=== PATIENT | male | born 1970 | race Two or more races ===

== ENCOUNTER 2021-08-21 11:56 | Inpatient (IN) | payer OTHER ==
[~2021-08-21] VITALS: Ht 167.6 cm; Wt 119.3 kg
[2021-08-21] VITALS (9 sets, daily range): BP systolic 119–150; BP diastolic 77–97
[2021-08-21] MEDS ORDERED: MORPHINE SULFATE 4 MG/ML SYR/VIAL IV ONE (12:45)
[2021-08-21] MEDS ORDERED: NITROGLYCERIN 0.4 MG SL TAB SL PRN (12:45)
[2021-08-21] MEDS ORDERED: MORPHINE SULFATE INJECTION 2 MG/ML SYRG IV PRN (12:45)
[2021-08-21 13:31] LABS: Eosinophils # (auto) 0 10 ^3/uL (0-0.8); Monocytes # (auto) 0.4 10 ^3/uL (0-1.3); Red Cell Distribution Width 14.4 % (11.8-14.3)
[2021-08-21 13:33] LABS: Basophils # (auto) 0.1 10 ^3/uL (0-0.2); Basophils % (auto) 0.5 % (0.0-2.0); Eosinophils % (auto) 0.1 % (0.0-7.0); Hematocrit 39.6 % (41.0-53.0); Hemoglobin 13.3 g/dL (13.5-17.5); Lymphocytes # (auto) 1.3 10 ^3/uL (0.4-5.4); Lymphocytes % (auto) 9.4 % (10.0-50.0); Mean Corpuscular Hemoglobin 26.9 pg (28.0-32.0); Mean Corpuscular Hgb Conc. 33.6 g/dL (32.0-36.0); Mean Corpuscular Volume 80.1 fL (80.0-100.0); Monocytes % (auto) 2.8 % (0.0-12.0); Neutrophils # (auto) 11.7 10 ^3/uL (1.6-8.6); Neutrophils % (auto) 87.2 % (37.0-80.0); Nucleated Red Blood Cells % 0.2 %; Red Blood Cells 4.95 10^6/uL (4.5-5.90); White Blood Cell 13.4 10^3/uL (4.4-10.8)
[2021-08-21] MEDS: NITROGLYCERIN 0.4 MG SL TAB SL PRN ×4 (13:49→20:13)
[2021-08-21 13:51] LABS: Albumin 3.9 g/dL (3.4-5.0); Calcium 9.7 mg/dL (8.5-10.1); Potassium 4.2 mmol/L (3.5-5.1)
[2021-08-21 13:57] LABS: BUN/Creatinine Ratio 14.3; Bilirubin, Total 0.4 mg/dL (0.2-1.0)
[2021-08-21] MEDS ORDERED: HYDROmorphone HCL 2 MG/ML VL ONE ×2 (14:06→15:19)
[2021-08-21] MEDS ORDERED: HYDROmorphone HCL 2 MG/ML VL IV ONE (14:15)
[2021-08-21] MEDS ORDERED: IODIXANOL 320MG/ML 100ML BTL IV ONE ×3 (14:19→16:27)
[2021-08-21] MEDS ORDERED: IOHEXOL 350 MG/ML 100ML IJ ONE (14:19)
[2021-08-21] MEDS ORDERED: ANGIOMAX 250 MG VIAL IV ONE ×2 (14:32→15:07)
[2021-08-21] MEDS ORDERED: fentaNYL CITRATE 100 MCG/2 ML VL ONE ×2 (14:32→14:46)
[2021-08-21] MEDS ORDERED: SODIUM CHL 0.9% 50 ML ONE ×2 (14:33→15:08)
[2021-08-21] MEDS ORDERED: MIDAZOLAM HCL 2MG/2ML 2ml VIAL (1mg/ml) ONE ×2 (14:33→14:47)
[2021-08-21] MEDS ORDERED: VERAPAMIL 2.5MG/ML INJ 2ML VIAL IV ONE (14:37)
[2021-08-21] MEDS ORDERED: HEPARIN SODIUM (PORCINE) 5000 UNITS/ML 1ML VIAL ONE (14:37)
[2021-08-21] MEDS ORDERED: EPTIFIBATIDE DRIP(0.75MG/ML) 100 ML IV ONE (15:35)
[2021-08-21] MEDS ORDERED: EPTIFIBATIDE INJ (2MG/ML) 10ML VIAL IV ONE ×2 (15:38→15:47)
[2021-08-21] MEDS ORDERED: KETOROLAC TROMETH 30 MG/ML 1ML VIAL IV ONE ×2 (15:45→20:45)
[2021-08-21 16:37] LABS: Cholesterol 123 mg/dL (< 200); Triglycerides 156 mg/dL (< 150)
[2021-08-21 16:39] LABS: HDL Cholesterol 34 mg/dL (40-59); LDL Cholesterol 75 mg/dL (< 100)
[2021-08-21] MEDS: ONDANSETRON HCL 4 MG/2 ML VIAL IV PRN (18:15)
[2021-08-21] MEDS ORDERED: TICAGRELOR 90 MG TAB PO ONE (18:15)
[2021-08-21] MEDS: MORPHINE SULFATE INJECTION 2 MG/ML SYRG IV PRN ×2 (18:17→19:47)
[2021-08-21] MEDS: NITROGLYCERIN 50MG/250ML 250 ML IV SCH (20:45)
[2021-08-21] MEDS ORDERED: ERGOCALCIFEROL 50,000 UNIT(1.25MG) CAP PO SCH (21:15)
[2021-08-21] MEDS ORDERED: DEXTROSE (50%) 50ML SYRG IV PRN (21:15)
[2021-08-21] MEDS: InsuLIN REG 1unit/0.01ml Soln (100units/ml) SC SCH (22:00)
[2021-08-21] MEDS: ATORVASTATIN 20 MG TAB PO SCH (22:00)
[2021-08-21] MEDS: CARVEDILOL 3.125 MG TAB PO SCH (22:00)
[2021-08-21] MEDS ORDERED: ATORVASTATIN 20 MG TAB PO SCH (22:00)
[2021-08-21] MEDS: ACCU-CHEK COMFORT CURVE STRIP VI SCH (22:00)
[2021-08-22] VITALS (22 sets, daily range): BP systolic 100–138; BP diastolic 62–96
[2021-08-22] MEDS: MORPHINE SULFATE INJECTION 2 MG/ML SYRG IV PRN ×4 (01:16→09:48)
[2021-08-22] MEDS: EPTIFIBATIDE DRIP(0.75MG/ML) 100 ML IV SCH ×2 (04:45→12:02)
[2021-08-22] MEDS: InsuLIN REG 1unit/0.01ml Soln (100units/ml) SC SCH ×4 (06:04→21:55)
[2021-08-22] MEDS: ACCU-CHEK COMFORT CURVE STRIP VI SCH ×4 (06:05→21:55)
[2021-08-22 06:07] LABS: Basophils # (auto) 0.1 10 ^3/uL (0-0.2); Basophils % (auto) 0.4 % (0.0-2.0); Eosinophils # (auto) 0 10 ^3/uL (0-0.8); Eosinophils % (auto) 0.2 % (0.0-7.0); Hematocrit 35.7 % (41.0-53.0); Lymphocytes # (auto) 1.4 10 ^3/uL (0.4-5.4); Lymphocytes % (auto) 10.3 % (10.0-50.0); Mean Corpuscular Hemoglobin 27.1 pg (28.0-32.0); Mean Corpuscular Hgb Conc. 33.7 g/dL (32.0-36.0); Mean Corpuscular Volume 80.5 fL (80.0-100.0); Monocytes # (auto) 0.9 10 ^3/uL (0-1.3); Neutrophils # (auto) 10.9 10 ^3/uL (1.6-8.6); Neutrophils % (auto) 82.1 % (37.0-80.0); Red Blood Cells 4.43 10^6/uL (4.5-5.90); Red Cell Distribution Width 14.4 % (11.8-14.3); White Blood Cell 13.3 10^3/uL (4.4-10.8)
[2021-08-22 06:25] LABS: BUN/Creatinine Ratio 19.5; Magnesium 2.4 mg/dL (1.6-2.6); Potassium 4.3 mmol/L (3.5-5.1)
[2021-08-22] MEDS ORDERED: ACETAMINOPHEN 325 MG TAB PO PRN (08:00)
[2021-08-22] MEDS: ASPirin 81 mg TAB PO SCH (09:46)
[2021-08-22] MEDS: TICAGRELOR 90 MG TAB PO SCH ×2 (09:46→21:54)
[2021-08-22] MEDS: ONDANSETRON HCL 4 MG/2 ML VIAL IV PRN (09:46)
[2021-08-22] MEDS: CARVEDILOL 3.125 MG TAB PO SCH ×2 (09:46→21:55)
[2021-08-22] MEDS ORDERED: CLOPIDOGREL BISULFATE 75 MG TAB PO SCH (10:00)
[2021-08-22] MEDS: LISINOPRIL 10 MG TAB PO SCH (10:00)
[2021-08-22] MEDS: traMADol HCL 50 MG TAB PO PRN ×2 (11:35→16:10)
[2021-08-22] MEDS: HYDROmorphone HCL 2 MG/ML VL IV PRN ×4 (13:18→23:18)
[2021-08-22] MEDS: SODIUM CHLORIDE 0.9% 1,000 ML IV SCH (15:09)
[2021-08-22 18:42] LABS: Urine Bacteria NONE SEEN /hpf (None Seen); Urine Blood Negative /uL (Negative); Urine Mucus FEW (None Seen); Urine Specific Gravity 1.041 (1.001-1.035); Urine WBC 3 /hpf (0 - 3)
[2021-08-22] MEDS: NITROGLYCERIN 50MG/250ML 250 ML IV SCH (20:45)
[2021-08-22 21:09] LABS: Alcohol, Urine < 3.0 mg/dL (0-10); Amphetamine Screen, Urine NEGATIVE (NEGATIVE); Barbiturate Scree,Urine NEGATIVE (NEGATIVE); Benzodiazephine Screen, Urine POSITIVE (NEGATIVE); Cannabinoid Screen, Urine NEGATIVE (NEGATIVE); Cocaine Screen, Urine NEGATIVE (NEGATIVE); Opiate Scree,Urine POSITIVE (NEGATIVE); Phencyclidine Screen, Urine NEGATIVE (NEGATIVE)
[2021-08-22] MEDS: ATORVASTATIN 20 MG TAB PO SCH (21:55)
[2021-08-23] VITALS (8 sets, daily range): BP systolic 101–129; BP diastolic 69–86
[2021-08-23] MEDS: HYDROmorphone HCL 2 MG/ML VL IV PRN ×5 (02:41→21:30)
[2021-08-23 05:05] LABS: Basophils # (auto) 0.1 10 ^3/uL (0-0.2); Eosinophils # (auto) 0 10 ^3/uL (0-0.8); Eosinophils % (auto) 0.2 % (0.0-7.0); Hemoglobin 11.5 g/dL (13.5-17.5); Lymphocytes # (auto) 2.3 10 ^3/uL (0.4-5.4); Monocytes # (auto) 1.2 10 ^3/uL (0-1.3)
[2021-08-23 05:06] LABS: Basophils % (auto) 0.6 % (0.0-2.0); Hematocrit 34.1 % (41.0-53.0); Mean Corpuscular Hemoglobin 27.2 pg (28.0-32.0); Mean Corpuscular Hgb Conc. 33.7 g/dL (32.0-36.0); Mean Corpuscular Volume 80.9 fL (80.0-100.0); Monocytes % (auto) 8.7 % (0.0-12.0); Neutrophils % (auto) 73.5 % (37.0-80.0); Nucleated Red Blood Cells % 0.1 %; Red Blood Cells 4.21 10^6/uL (4.5-5.90); Red Cell Distribution Width 14.6 % (11.8-14.3); White Blood Cell 13.7 10^3/uL (4.4-10.8)
[2021-08-23 05:19] LABS: Albumin 3.2 g/dL (3.4-5.0); BUN/Creatinine Ratio 15.9; Calcium 8.7 mg/dL (8.5-10.1); Potassium 4.3 mmol/L (3.5-5.1)
[2021-08-23 05:22] LABS: Bilirubin, Total 0.6 mg/dL (0.2-1.0); Total Protein 6.9 g/dL (6.4-8.2)
[2021-08-23] MEDS: InsuLIN REG 1unit/0.01ml Soln (100units/ml) SC SCH ×4 (06:08→21:29)
[2021-08-23] MEDS: ACCU-CHEK COMFORT CURVE STRIP VI SCH ×4 (06:17→21:29)
[2021-08-23] MEDS: traMADol HCL 50 MG TAB PO PRN ×2 (08:03→14:34)
[2021-08-23] MEDS: ASPirin 81 mg TAB PO SCH (09:46)
[2021-08-23] MEDS: TICAGRELOR 90 MG TAB PO SCH ×2 (09:46→21:48)
[2021-08-23] MEDS: CARVEDILOL 3.125 MG TAB PO SCH ×2 (09:47→21:28)
[2021-08-23] MEDS: LISINOPRIL 10 MG TAB PO SCH (09:47)
[2021-08-23] MEDS: SODIUM CHLORIDE 0.9% 1,000 ML IV SCH (12:45)
[2021-08-23] MEDS: ATORVASTATIN 20 MG TAB PO SCH (21:29)
[2021-08-24] MEDS: HYDROmorphone HCL 2 MG/ML VL IV PRN ×5 (01:29→19:45)
[2021-08-24 05:00] VITALS: BP 106/73
[2021-08-24] MEDS: InsuLIN REG 1unit/0.01ml Soln (100units/ml) SC SCH ×4 (06:28→22:10)
[2021-08-24] MEDS: ACCU-CHEK COMFORT CURVE STRIP VI SCH ×4 (06:28→22:10)
[2021-08-24] MEDS: SODIUM CHLORIDE 0.9% 1,000 ML IV SCH (08:45)
[2021-08-24 09:00] VITALS: BP 111/74
[2021-08-24] MEDS: ASPirin 81 mg TAB PO SCH (10:52)
[2021-08-24] MEDS: TICAGRELOR 90 MG TAB PO SCH ×2 (10:52→22:03)
[2021-08-24] MEDS: CARVEDILOL 3.125 MG TAB PO SCH ×2 (10:53→22:00)
[2021-08-24] MEDS: LISINOPRIL 10 MG TAB PO SCH (10:54)
[2021-08-24 13:00] VITALS: BP 117/64
[2021-08-24 17:00] VITALS: BP 106/75
[2021-08-24 22:00] VITALS: BP 120/74
[2021-08-24] MEDS: ATORVASTATIN 20 MG TAB PO SCH (22:02)
[2021-08-25] MEDS: HYDROmorphone HCL 2 MG/ML VL IV PRN ×2 (00:17→07:50)
[2021-08-25] MEDS: SODIUM CHLORIDE 0.9% 1,000 ML IV SCH (04:21)
[2021-08-25 05:00] VITALS: BP 111/70
[2021-08-25] MEDS: InsuLIN REG 1unit/0.01ml Soln (100units/ml) SC SCH ×2 (06:21→11:30)
[2021-08-25] MEDS: ACCU-CHEK COMFORT CURVE STRIP VI SCH ×2 (06:21→11:56)
[2021-08-25 09:00] VITALS: BP 125/71
[2021-08-25] MEDS ORDERED: TICA90TA PO (10:01)
[2021-08-25] MEDS ORDERED: LISI20TA28 PO (10:01)
[2021-08-25] MEDS ORDERED: CAR3125T PO (10:01)
[2021-08-25] MEDS: ASPirin 81 mg TAB PO SCH (10:17)
[2021-08-25] MEDS: LISINOPRIL 10 MG TAB PO SCH (10:17)
[2021-08-25] MEDS: TICAGRELOR 90 MG TAB PO SCH (10:17)
[2021-08-25] MEDS: CARVEDILOL 3.125 MG TAB PO SCH (10:18)
[2021-08-25 13:00] VITALS: BP 118/74
== END 2021-08-25 15:30 | disposition home or self-care (01) | DRG 246 ==
LOC: TELE-CENTR 12:12 → ICU CENTRL 17:39 → TELE-CENTR 08-23 15:00
PROVIDERS: ADMIT Internal Medicine; ATTEND Family Medicine
PROC: 027136Z Dilation of Coronary Artery, Two Arteries with Three Drug-eluting Intraluminal Devices, Percutaneous Approach (ICD-10-PCS; principal; 2021-08-21)
PROC: 4A023N7 Measurement of Cardiac Sampling and Pressure, Left Heart, Percutaneous Approach (ICD-10-PCS; 2021-08-21)
PROC: B211YZZ Fluoroscopy of Multiple Coronary Arteries using Other Contrast (ICD-10-PCS; 2021-08-21)
PROC: B215YZZ Fluoroscopy of Left Heart using Other Contrast (ICD-10-PCS; 2021-08-21)
PROC: B241ZZ3 Ultrasonography of Multiple Coronary Arteries, Intravascular (ICD-10-PCS; 2021-08-21)
PROC: 3E073PZ Introduction of Platelet Inhibitor into Coronary Artery, Percutaneous Approach (ICD-10-PCS; 2021-08-21)
DX: T82.867A Thrombosis due to cardiac prosthetic devices, implants and grafts, initial encounter (principal); I21.3 ST elevation (STEMI) myocardial infarction of unspecified site; I25.10 Atherosclerotic heart disease of native coronary artery without angina pectoris; E11.9 Type 2 diabetes mellitus without complications; I11.9 Hypertensive heart disease without heart failure; E11.65 Type 2 diabetes mellitus with hyperglycemia; G89.4 Chronic pain syndrome; M54.9 Dorsalgia, unspecified; Y83.1 Surgical operation with implant of artificial internal device as the cause of abnormal reaction of the patient, or of later complication, without mention of misadventure at the time of the procedure; E66.9 Obesity, unspecified; Z79.4 Long term (current) use of insulin; I25.2 Old myocardial infarction; Z82.49 Family history of ischemic heart disease and other diseases of the circulatory system; Z71.3 Dietary counseling and surveillance; Y92.89 Other specified places as the place of occurrence of the external cause
CPT/HCPCS: 36415; 80048; 80053; 80061; 80307; 81001; 82306; 82962; 83036; 83735; 84439; 84443; 84484; 85025; 85610; 85730; 87040; 87081; 92928; 92929; 92978; 93306; 93458; 99152; 99153; C1874; C1887; G0378; J1815; J1885; J2250; J2405; Q9967